=== PATIENT | female | born 1995 | race Caucasian/White ===

== ENCOUNTER 2017-10-30 07:18 | Emergency (ER) | payer SELFPAY, OTHER ==
[2017-10-30] MEDS: ONDANSETRON (ODT) 4 MG TAB ODT (07:41)
[2017-10-30] MEDS: HYDROCODONE/APAP (5/325) TAB PO (07:43)
== END 2017-10-30 08:46 | disposition home or self-care (01) ==
LOC: FTE 07:18
DX: S39.92XA Unspecified injury of lower back, initial encounter (principal); J45.909 Unspecified asthma, uncomplicated; R51 Headache; R11.0 Nausea; V49.9XXA Car occupant (driver) (passenger) injured in unspecified traffic accident, initial encounter
CPT/HCPCS: 70450; 72100; 81025; 99284-25